=== PATIENT | male | born 2005 | race African-American/Black ===

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

== ENCOUNTER 2024-04-25 22:41 | Emergency (ER) | payer OTHER ==
[2024-04-25 22:58] LABS: Bilirubin Moderate (Negative); Blood, Urine Trace (Negative); Clarity Cloudy (Clear); Glucose, Urine (Dipstick) Negative (Negative); Ketone, Urine 80 mg/dL (Negative); Leukocyte Small (Negative); Nitrite Negative (Negative); Protein, Urine (Dipstick) > or equal to 300 mg/dL (Neg-Trace); Specific Gravity, Urine 1.025 (1.005-1.030)
[2024-04-25 23:02] LABS: Bacteria/HPF Rare-Few HPF (None Seen); CAUTI Indications for Culture Dysuria,urgency,freq; Mucous/LPF 2+ LPF (<2+); RBC/HPF 0-3 HPF (0-3); Squamous Epithelial None Seen HPF (0-3); WBC/HPF Greater than 50 HPF (0-3)
[2024-04-25 23:03] LABS: Urine Culture Reflex Yes Yes
[2024-04-25] MEDS ORDERED: Ondansetron ODT 4 MG TAB ONE (23:25)
[2024-04-25] MEDS ORDERED: Sulfameth/Trimethoprim DS 800-160mg TAB ONE (23:25)
[2024-04-27 01:39] LABS: Chlam.trachomatis by PCR,Urine DETECTED (NotDetected); GC N.gonorrhoeae PCR,UrineVOID Not Detected (NotDetected)
== END 2024-04-25 23:33 | disposition home or self-care (01) ==
LOC: NAV ERS 22:41
DX: B34.9 Viral infection, unspecified (principal); R30.0 Dysuria
CPT/HCPCS: 81001; 87086; 87428; 87491; 87591; 99283; Q0162